=== PATIENT | female | born 1965 | race Asian ===

== ENCOUNTER 2021-02-02 05:00 | Day surgery (SDC) | payer BC ==
[2021-01-28 16:11] VITALS: BMI 25.9
[2021-02-02 11:46] VITALS: TEMP 97.5
[2021-02-02 12:44] VITALS: BP 100/55; PULSE 67
== END 2021-02-02 12:44 | disposition home or self-care (01) ==
LOC: JASU-ENDO 05:00
PROVIDERS: ATTEND Internal Medicine Gastroenterology
PROC: 0DBC8ZX Excision of Ileocecal Valve, Via Natural or Artificial Opening Endoscopic, Diagnostic (ICD-10-PCS; principal; 2021-02-02 11:00)
DX: Z12.11 Encounter for screening for malignant neoplasm of colon (principal); K64.8 Other hemorrhoids; D17.5 Benign lipomatous neoplasm of intra-abdominal organs; R73.03 Prediabetes
CPT/HCPCS: 88305-TC